=== PATIENT | female | born 1965 | race Two or more races ===

== ENCOUNTER 2018-05-24 12:32 | Day surgery (SDC) | payer OTHER ==
[2018-05-24] MEDS ORDERED: LIDOCAINE 2% (SDV) 5 ML INJ (14:50)
[2018-05-24] MEDS ORDERED: PROPOFOL 40 ML (14:50)
== END 2018-05-24 16:25 | disposition home or self-care (01) ==
LOC: GIL 12:32
DX: K29.50 Unspecified chronic gastritis without bleeding (principal); K64.8 Other hemorrhoids; Z86.010 Personal history of colon polyps
CPT/HCPCS: 43239; 88305; 88312